=== PATIENT | male | born 1985 | race Two or more races ===

== ENCOUNTER 2019-02-23 21:27 | Emergency (ER) | payer MEDICAID ==
[~2019-02-23] VITALS: Ht 162.6 cm; Wt 70.8 kg
[2019-02-23] MEDS ORDERED: [UNRECOGNIZED DRUG - OTHER] SQ (21:44)
[2019-02-23] MEDS ORDERED: CLINDESSE5.8 GM VG (21:44)
[2019-02-23 21:45] VITALS: BP 123/80
[2019-02-23] MEDS ORDERED: AMOXICILLIN125 MG ORAL (21:45)
--- NOTE | 2019-02-23 21:48 | NUR ---
ED Nurse Note: pt presents to ED with L side lymph node swelling. pt states that he feels his R lymph node has gotten more swollen and painful in the last day. pt reports that he is taking amoxicillin for acne and has been on it for a month. per pt, the pain is now spread to his L ear and eye that is a 7/10
[2019-02-23] MEDS ORDERED: MUPIROCIN22 GM TOPIC (22:13)
[2019-02-23] MEDS ORDERED: BACTRIM DS TAB1 EAC1 ORAL (22:13)
--- NOTE | 2019-02-23 22:13 | Emergency Room Report ---
History of Present Illness General Chief Complaint: Pain Source: Patient Present Illness HPI Is a 33-year-old male with history of acne. He seen a dermatology ready. He said he was on one antibiotics for a long time but it was not getting the results. He was switched to amoxicillin. He was taking it twice a day but now down to once a day. Is getting itchiness. He came in with chief complaint of swollen lymph node. Onset for almost a week. Localized to his left submental area. No fever chills but no nausea no vomiting. No other complaint. He did have some drainage to some of the acne on the left jaw area. Allergies: Coded Allergies: No Known Allergies (Unverified , 02/23/19) Patient History Past Medical History: see triage record, old chart reviewed Past Surgical History: other Pertinent Family History: none Social History: Denies: smoking Immunizations: other Reviewed Nursing Documentation: PMH: Agreed; PSxH: Agreed Nursing Documentation-PMH Past Medical History: No Stated History Review of Systems Eye: Denies: eye pain, blurred vision ENT: Denies: ear pain, nose congestion, throat swelling Respiratory: Denies: cough, shortness of breath Cardiovascular: Denies: chest pain, palpitations Gastrointestinal: Denies: abdominal pain, diarrhea, nausea, vomiting Musculoskeletal: Denies: back pain, joint pain Skin: Denies: rash Neurological: Denies: headache, numbness Endocrine: Denies: increased thirst, increased urine Hematologic/Lymphatic: Denies: easy bruising All Other Systems: negative except mentioned in HPI Physical Exam Vital Signs Date Time Temp Pulse Resp B/P (MAP) Pulse Ox O2 Delivery O2 Flow Rate FiO2 02/23/19 21:37 98.2 71 16 123/80 (94) 96 Room Air Vitals normal Sp02 EP Interpretation: reviewed, normal General Appearance: well appearing, no apparent distress, alert Head: normocephalic, atraumatic Eyes: bilateral eye PERRL, bilateral eye EOMI ENT: hearing grossly normal, normal pharynx, other - Left jawline with scabbed over acne with surrounding erythema. He does have a couple of enlarged submental adenopathy. Neck: full range of motion, supple, no meningismus Respiratory: chest non-tender, lungs clear, normal breath sounds Cardiovascular #1: regular rate, rhythm, no murmur Gastrointestinal: normal bowel sounds, non tender, no mass, no organomegaly, no bruit, non-distended Musculoskeletal: back normal - With acne vulgaris, gait/station normal, normal range of motion Psychiatric: mood/affect normal Medical Decision Making Diagnostic Impression: Primary Impression: Cellulitis, face ER Course This patient presents with adenopathy secondary to cellulitis of his acne. No abscess seen. We will put him on Bactrim to cover for MRSA. Last Vital Signs Date Time Temp Pulse Resp B/P (MAP) Pulse Ox O2 Delivery O2 Flow Rate FiO2 02/23/19 21:45 98.2 78 16 123/80 96 Room Air Status: improved Disposition: HOME, SELF-CARE Condition: Stable Scripts Mupirocin* (MUPIROCIN*) 22 Gm Oint...g. 1 APPLIC TOPIC THREE TIMES A DAY, #22 GM Prov: Luis Galan MD 02/23/19 Trimethoprim/Sulfamethoxazole 160/800* (BACTRIM DS TABLET*) 1 Each Tablet 1 TAB ORAL Q12H, #14 TAB 0 Refills Prov: Luis Galan MD 02/23/19 Referrals: [facility]ERRING (PCP) Additional Instructions: Keep wound clean. Clean with hydrogen peroxide first and then apply antibiotic ointment. Follow-up with your doctor in 7 days for recheck. Hold amoxicillin for now. Take your probiotics. Return if worse. Luis Galan MD Feb 23, 2019 22:13
[2019-02-23 22:15] VITALS: BP 123/80
[2019-02-23] MEDS ORDERED: Bactrim-DS 1 tab ORAL ONE (22:15)
--- NOTE | 2019-02-23 22:15 | NUR ---
ER DISCHARGE NOTE: Patient is cleared to be discharged per ERMD, pt is aox4, on room air, with stable vital signs. pt was given dc and prescription instructions, pt was able to verbalize understanding, pt id band removed without complications. pt is able to ambulate with steady gait. pt took all belongings.
== END 2019-02-23 22:15 | disposition home or self-care (01) ==
LOC: EDSEX 21:27 → EMR 22:08
DX: L03.211 Cellulitis of face (principal); L70.9 Acne, unspecified
CPT/HCPCS: 99282

== ENCOUNTER 2019-05-26 10:48 | Emergency (ER) | payer MEDICAID ==
[~2019-05-26] VITALS: Ht 167.6 cm; Wt 77.1 kg
[~2019-05-26 10:48] MED LIST: AMOXICILLIN125 MG ORAL; BACTRIM DS TAB1 EAC1 ORAL; CLINDESSE5.8 GM VG; MUPIROCIN22 GM TOPIC; [UNRECOGNIZED DRUG - OTHER] SQ
--- NOTE | 2019-05-26 10:59 | NUR ---
ED Nurse Note: PT AMBUALTED TO ED STATING "I TRIED TO DO THE NINJA WARRIOR RAMP AND MY LEFT FOOT CRACKED AND I PRESS ON MY FOOT" X 1 DAY. PT STATES THAT BOTH FEET CASSY BUT LEFT FOOR IS WORSE
--- NOTE | 2019-05-26 11:06 | Emergency Room Report ---
History of Present Illness General Chief Complaint: Lower Extremity Injury Source: Patient Present Illness HPI 33-year-old male presents with bilateral foot pain, worse on the left foot after jumping down yesterday he was doing a ninja warrior wrap, he endorses sharp left metatarsal pain aggravated with movement, alleviated throughout severity is mild, intermittent, patient presents for evaluation Allergies: Coded Allergies: No Known Allergies (Unverified , 02/23/19) Patient History Past Medical History: see triage record Reviewed Nursing Documentation: PMH: Agreed; PSxH: Agreed Nursing Documentation-PMH Past Medical History: No Stated History Review of Systems All Other Systems: negative except mentioned in HPI Physical Exam Vital Signs Date Time Temp Pulse Resp B/P (MAP) Pulse Ox O2 Delivery O2 Flow Rate FiO2 05/26/19 10:54 98.1 83 16 133/84 (100) 100 Room Air General Appearance: well appearing, no apparent distress Head: normocephalic, atraumatic ENT: hearing grossly normal, normal voice Neck: full range of motion, supple Respiratory: no respiratory distress, speaking full sentences Musculoskeletal: other - Left lower extremity: 2+ PT DP fires EHL, tenderness to palpation first and second metatarsal, no palpable deformity, right lower extremity: Fires EHL 2+ PT DP, no deformity minimal tenderness Neurologic: alert, normal gait Psychiatric: mood/affect normal Skin: no rash Medical Decision Making Diagnostic Impression: Primary Impression: Sprain of foot, left Qualified Codes: S93.602A - Unspecified sprain of left foot, initial encounter ER Course 33-year-old male presents with left foot pain differential diagnosis includes fracture sprain dislocation X-ray negative We will provide patient with a postop boot additionally patient is to be nonweightbearing until cleared by Ortho crutches provided Disposition home with return precautions follow-up with PCP Procedure: XRAY Foot Complete R Indication: Right foot pain Technique: 3 views right foot Comparison: none Findings: No acute fractures. No dislocations. The joint spaces are preserved. Impression: Negative Dictated By: Tom Enciso MD Electronically Signed By: Tom Enciso MD Signed Date/Time 05/26/19 2696 CC: Néstor Vallejo MD Procedure: XRAY Foot Complete L Indication: Left foot pain Technique: 3 views left foot Comparison: none Findings: No acute fractures. No dislocations. The joint spaces are preserved. Impression: Negative Dictated By: Tom Enciso MD Electronically Signed By: Tom Enciso MD Signed Date/Time 05/26/19 1348 CC: Néstor Vallejo MD Last Vital Signs Date Time Temp Pulse Resp B/P (MAP) Pulse Ox O2 Delivery O2 Flow Rate FiO2 05/26/19 10:54 98.1 83 16 133/84 (100) 100 Room Air Disposition: HOME, SELF-CARE Condition: Stable Scripts Ibuprofen* (MOTRIN*) 600 Mg Tablet 600 MG ORAL Q8H PRN for For Pain, #30 TAB 0 Refills Prov: Néstor Vallejo MD 05/26/19 Referrals: [facility] Patient Instructions: Foot Sprain Additional Instructions: The patient was provided with discharge instructions, notified to follow-up with a primary care doctor and or specialist in the next 24-48 hours, and to return to the ED if they have worsening of their symptoms. Please note that this report is being documented using DRAGON technology. This can lead to erroneous entry secondary to incorrect interpretation by the dictating instrument. FOLLOW UP WITH ORTHO FOR CLEARANCE FOR SPORTS, MAY NEED REPEAT RADIOGRAPHS TO ENSURE NO FRACTURE. Néstor Vallejo MD May 26, 2019 11:06
[2019-05-26] MEDS ORDERED: Acetaminophen 500mg (ES) tab ORAL ONE (11:15)
--- NOTE | 2019-05-26 12:02 | NUR ---
ED Nurse Note: xray at the bedside
--- NOTE | 2019-05-26 12:10 | NUR ---
ED Nurse Note: XRAY COMPLETED
--- NOTE | 2019-05-26 13:54 | Diagnostic Imaging Report ---
Indication: Left foot pain Technique: 3 views left foot Comparison: none Findings: No acute fractures. No dislocations. The joint spaces are preserved. Impression: Negative
[2019-05-26] MEDS ORDERED: IBUPROFEN600 MG ORAL (14:16)
[2019-05-26 14:20] VITALS: BP 127/81
--- NOTE | 2019-05-26 14:20 | NUR ---
ER DISCHARGE NOTE: Patient is cleared to be discharged per ERMD, pt is aox4, on room air, with stable vital signs. pt was given dc and prescription instructions, pt was able to verbalize understanding, pt id band removed. pt is able to ambulate with steady gait. pt took all belongings. pt extremity was home wrapped. pt provided with crutch. able to ambulate with steady gait.
--- NOTE | 2019-05-26 14:41 | Diagnostic Imaging Report ---
Indication: Right foot pain Technique: 3 views right foot Comparison: none Findings: No acute fractures. No dislocations. The joint spaces are preserved. Impression: Negative
== END 2019-05-26 14:20 | disposition home or self-care (01) ==
LOC: EMR 12:10
DX: S93.602A Unspecified sprain of left foot, initial encounter (principal); X58.XXXA Exposure to other specified factors, initial encounter; Y92.9 Unspecified place or not applicable; M25.571 Pain in right ankle and joints of right foot
CPT/HCPCS: 73630; Z7502; 99284

== ENCOUNTER 2019-12-02 13:32 | Outpatient (CLI) | payer MEDICAID ==
[~2019-12-02] VITALS: Ht 170.2 cm; Wt 71.7 kg
[~2019-12-02 13:32] MED LIST changes: +IBUPROFEN600 MG ORAL
[2019-12-02] MEDS ORDERED: TESTOSTERO200 MG/1 M IM (13:48)
[2019-12-02 13:49] VITALS: BP 107/63
--- NOTE | 2019-12-02 15:00 | Consultation ---
DATE OF CONSULTATION: 12/02/2019 CHIEF COMPLAINT: Abdominal pain, bloating, diarrhea. PAST MEDICAL HISTORY: 1. Anxiety. 2. H. pylori infection. PAST SURGICAL HISTORY: None. MEDICATIONS: Testosterone. FAMILY HISTORY: Noncontributory. SOCIAL HISTORY: The patient occasionally drinks, smokes, and also uses marijuana. ALLERGIES: No known drug allergies. REVIEW OF SYSTEMS: Positive for abdominal pain, GERD, bloating, diarrhea. PHYSICAL EXAMINATION: VITAL SIGNS: Temperature 98.5, blood pressure 107/63, pulse 69, respirations 20 HEENT: Normocephalic and atraumatic. Sclerae anicteric. NECK: Supple. No evidence of obvious lymphadenopathy. CARDIOVASCULAR: Regular rate and rhythm. Plus S1 and S2. LUNGS: Clear to auscultation bilaterally. ABDOMEN: Positive bowel sounds. Soft and nontender. No rebound. No guarding. No peritoneal sign. EXTREMITIES: No cyanosis. No clubbing. No edema. ASSESSMENT AND PLAN: The patient is a 34-year-old male, highly suspicious for SIBO. Apparently he tried different diet, he then changed to lactose free diet, he then changed to gluten free diet, did not change his symptoms. He has apparently been on Augmentin for some other reason, which did not help either. Plan to start him on Cipro and Flagyl for 10 days. Follow with [facility]. The patient return to clinic after the above. Carl Pearce M.D. DR: Hai JOB#: [id number] CC:
== END 2019-12-02 15:32 | disposition home or self-care (01) ==
LOC: PAN 13:32
DX: R14.0 Abdominal distension (gaseous) (principal); R19.7 Diarrhea, unspecified; F41.9 Anxiety disorder, unspecified; R10.9 Unspecified abdominal pain; K21.9 Gastro-esophageal reflux disease without esophagitis
CPT/HCPCS: G0463

== ENCOUNTER 2020-01-20 14:20 | Outpatient (CLI) | payer MEDICAID ==
[~2020-01-20 14:20] MED LIST changes: +TESTOSTERO200 MG/1 M IM
[2020-01-20 14:49] VITALS: BP 106/65
--- NOTE | 2020-01-20 15:35 | General Progress Note ---
Subjective ROS Limited/Unobtainable: Yes Allergies: Coded Allergies: No Known Allergies (Unverified , 02/23/19) Objective Last 24 Hour Vital Signs Date Time Temp Pulse Resp B/P (MAP) Pulse Ox O2 Delivery O2 Flow Rate FiO2 01/20/20 14:49 97.1 74 16 106/65 96 General Appearance: alert EENT: normal ENT inspection Neck: supple Cardiovascular: normal rate Respiratory/Chest: decreased breath sounds Abdomen: normal bowel sounds, non tender, soft Extremities: non-tender Assessment/Plan Assessment/Plan: SIBO s/p treatment cont [facility] RTC Carl Garcia MD Jan 20, 2020 15:35
== END 2020-01-20 16:20 | disposition home or self-care (01) ==
LOC: PAN 14:20
DX: K56.609 Unspecified intestinal obstruction, unspecified as to partial versus complete obstruction (principal)
CPT/HCPCS: 99212